=== PATIENT | female | born 1965 | race Caucasian/White ===

== ENCOUNTER → 2020-02-19 | Outpatient (CLI) | payer MEDICARE, OTHER ==
[2020-02-21 13:07] LABS: CORNONAVIRUS (COVID19) CSH-NRL Negative (Negative)
== END | disposition home or self-care (01) ==
LOC: LAB SHORT 12:35 → LAB EV 12:35
PROVIDERS: Physician Assistant
DX: R50.9 Fever, unspecified (principal); Z20.828 Contact with and (suspected) exposure to other viral communicable diseases
CPT/HCPCS: U0003

== ENCOUNTER → 2023-02-09 | Outpatient (CLI) | payer MEDICARE, OTHER ==
[2023-02-09 17:18] LABS: BASOPHILS ABSOLUTE AUTO 0.03 K/mm3 (0.00-0.23); BASOPHILS PERCENT AUTO 0 % (0-2); EOSINOPHILS ABSOLUTE AUTO 0.01 K/mm3 (0.00-0.68); EOSINOPHILS PERCENT AUTO 0 % (0-6); Hematocrit 38.6 % (33.0-51.0); Hemoglobin 12.9 g/dL (11.5-16.0); IMMATURE GRAN ABSOLUTE AUTO 0.05 K/mm3 (0.00-0.10); IMMATURE GRAN PERCENT AUTO 0 % (0-1); LYMPHOCYTES ABSOLUTE AUTO 0.65 K/mm3 (0.84-5.20); LYMPHOCYTES PERCENT AUTO 6 % (21-46); MONOCYTES ABSOLUTE AUTO 0.35 K/mm3 (0.16-1.47); MONOCYTES PERCENT AUTO 3 % (4-13); Mean Corpuscular HGB 31.2 pg (26.0-34.0); Mean Corpuscular HGB Conc 33.4 g/dL (31.5-36.5); Mean Corpuscular Volume 94 fL (80-100); Mean Platelet Volume 9.2 fL (9.1-12.4); NEUTROPHILS ABSOLUTE AUTO 10.06 K/mm3 (1.96-9.15); NEUTROPHILS PERCENT AUTO 90 % (41-73); Platelet Count 247 K/mm3 (150-400); RDW Standard Deviation 37.3 fL (35.1-46.3); Red Blood Cell Count 4.13 M/mm3 (3.80-5.20); White Blood Cell Count 11.15 K/mm3 (4.00-11.30)
[2023-02-09 17:27] LABS: Albumin, Blood 4.3 g/dL (3.4-5.0); Albumin/Globulin Ratio 1.5 (0.8-1.8); Bilirubin, Total 0.3 mg/dL (0.1-1.0); Bun/Creatinine Ratio 25.6 (12.0-20.0); Calcium, Blood 9.2 mg/dL (8.5-10.1); Creatinine, Blood 0.78 mg/dL (0.40-1.00); Globulin, Blood 2.9 g/dL (2.2-4.0); Total Protein, Blood 7.2 g/dL (6.4-8.2)
== END | disposition home or self-care (01) ==
LOC: LAB 17:13 → LAB SHORT 17:13
PROVIDERS: Physician Assistant
DX: R10.9 Unspecified abdominal pain (principal)
CPT/HCPCS: 80053; 83690; 85025

== ENCOUNTER → 2023-02-15 | Outpatient (CLI) | payer MEDICARE, OTHER ==
[2023-02-15 16:30] LABS: Bacteria Rare /hpf; Red Blood Cells, Urine 0-2 /hpf (0-2); Squamous Epithelial Cells Not Seen /hpf (Few); White Blood Cells, Urine 0-2 /hpf (0-5)
== END ==
LOC: LAB 16:18 → LAB SHORT 16:18
PROVIDERS: Physician Assistant
DX: R10.9 Unspecified abdominal pain (principal)
CPT/HCPCS: 81015; 87086

== ENCOUNTER → 2023-03-07 | Outpatient (CLI) | payer MEDICARE, OTHER ==
[2023-03-09 11:12] LABS: HPV 16 Negative (Negative); HPV 18 Negative (Negative); HPV OTHER HR TYPES Negative (Negative)
== END ==
LOC: LAB 11:35 → LAB SHORT 11:35
PROVIDERS: Family Medicine
DX: Z01.419 Encounter for gynecological examination (general) (routine) without abnormal findings (principal)
CPT/HCPCS: 87624; G0145

== ENCOUNTER → 2023-05-10 | Outpatient (CLI) | payer MEDICARE, OTHER | LOC: LAB 17:36 → LAB SHORT 17:36 | DX: L02.211 Cutaneous abscess of abdominal wall (principal) | CPT/HCPCS: 87070; 87075; 87077; 87147; 87186; 87205 ==